=== PATIENT | male | born 1960 | race Caucasian/White ===

== ENCOUNTER 2023-01-23 01:26 | Emergency (ER) | payer OTHER ==
[~2023-01-23] VITALS: Ht 175.2 cm; Wt 79.4 kg
[~2023-01-23 01:26] MED LIST: ECPIRIN325 MG PO; FENOFIBRATE160 MG PO; LIPITOR80 MG PO; VALSARTAN160 MG PO
== END 2023-01-23 01:55 | disposition home or self-care (01) ==
LOC: ED 01:26
DX: M19.011 Primary osteoarthritis, right shoulder (principal); I10 Essential (primary) hypertension; I25.10 Atherosclerotic heart disease of native coronary artery without angina pectoris; E78.5 Hyperlipidemia, unspecified; Z95.5 Presence of coronary angioplasty implant and graft